=== PATIENT | female | born 1980 | race Caucasian/White ===

== ENCOUNTER 2021-08-28 06:39 | Inpatient (IN) ==
--- NOTE | 2021-08-28 06:41 | Emergency Department Note ---
Skin/Abscess/FB HPI General Chief complaint: Skin/Abscess/Rash Stated complaint: Left Arm Infection Time Seen by Provider: 08/28/21 06:41 Mode of arrival: ambulatory History of Present Illness HPI Narrative: Narrative: Related Data Previous Rx's Medication Instructions Recorded cephalexin 500 mg capsule 500 mg PO TID #21 caps 08/24/21 Allergies Allergy/AdvReac Type Severity Reaction Status Date / Time No Known Drug Allergies Allergy Verified 08/25/21 20:56 Review of Systems ROS ROS Narrative: Narrative: PFSH Narrative Patient History Narrative: Narrative: Medical/Surgical/Family History All Active Problems (Updated 08/25/21 @ 22:05 by Orestes Davis DO) Lymphangitis (Acute) Cellulitis of left thumb (Acute) Social History Smoking Status: Current every day smoker Exam Narrative Narrative: Narrative: MDM MDM Narrative Medical decision making narrative: Narrative: Discharge Plan Patient/Caregiver Discharge Instructions Follow up with: ARIANNE Valverde [Primary Care Provider] - Prescriptions: No Action cephalexin 500 mg capsule 500 mg PO TID Qty: 21 0RF
[2021-08-28] MEDS ORDERED: CLINDAMYCIN 900 MG in DEXTROSE 5% IN WATER 50 ML IV ONE (07:20)
[2021-08-28] MEDS ORDERED: VANCOMYCIN 2,000 MG in 0.9 % SODIUM CHLORIDE 500 ML IV ONE (07:20)
--- NOTE | 2021-08-28 07:31 | Emergency Department Note ---
HPI General Chief complaint: Skin/Abscess/Rash Stated complaint: Left Arm Infection Time Seen by Provider: 08/28/21 06:41 Source: patient Mode of arrival: ambulatory Limitations: no limitations History of Present Illness HPI Narrative: Narrative: Patient is a 40-year-old female with no known past medical history who presents to the emergency department due to concern for infection. Patient states that she was here approximately 2 days ago due to concern for infection, but decided to leave after recommendations to be admitted because of children who needed her care. She came back today after worsening of her symptoms despite Keflex therapy. She states that now she has more swelling of her thumb, swelling of her hand, and red streaks that are running up her arm. She endorses significant pain and tenderness of her thumb. She denies palliative factors, but states that trying to straighten her thumb has a significant pain. She denies any other symptoms or concerns at this time. Related Data Home Medications Medication Instructions Recorded Confirmed estradiol 0.5 mg PO QAM 08/28/21 08/28/21 hydroxyzine HCl 25 mg tablet 25 mg PO QHS 08/28/21 08/28/21 sertraline 50 mg PO BID 08/28/21 08/28/21 Previous Rx's Medication Instructions Recorded sulfamethoxazole 800 1 tab PO Q12H #12 tabs 08/30/21 mg-trimethoprim 160 mg tablet (Bactrim DS) Allergies Allergy/AdvReac Type Severity Reaction Status Date / Time ketorolac [From Toradol] Allergy Severe Anaphylaxis Verified 08/28/21 23:57 Review of Systems ROS ROS Narrative: Narrative: Constitutional: Denies fever or weakness Eyes: Denies eye pain or vision change ENT ED: Denies throat pain, hearing loss or rhinorrhea Cardiovascular: Denies chest pain, dyspnea on exertion, orthopnea or edema Respiratory: Denies shortness of breath or cough Gastrointestinal: Denies abdominal pain, nausea, vomiting, diarrhea, constipation, hematochezia or melena Musculoskeletal: Reports other (Redness, pain, tenderness, and swelling of left thumb, swelling of the hand); Denies back pain or myalgia Integumentary: Reports rash and other (Red streak running up left arm); Denies lesions Neurological: Denies headache, weakness, numbness, confusion, abnormal gait or dizziness Psychiatric: Denies anxiety, suicidal thoughts or homicidal thoughts Endocrine: Denies fatigue or polyuria Hematological/Lymphatic: Denies easy bleeding or easy bruising PFSH Narrative Patient History Narrative: Narrative: Medical/Surgical/Family History All Active Problems (Updated 09/06/21 @ 21:17 by Rivera Allen MD) Lymphangitis (Acute) Cellulitis of left thumb (Acute) Cellulitis (Acute) Social History Smoking Status: Current every day smoker Exam Narrative Narrative: Narrative: General Limitations: no limitations General appearance: Present alert and in no apparent distress; Absent anxious or appears intoxicated Head Head: Present atraumatic and normocephalic Eye Eye: Present PERRL and EOMI; Absent scleral icterus ENT ENT: Present mucous membranes moist; Absent nasal congestion Neck Neck: Present full ROM; Absent tenderness Chest Chest: Present normal inspection and symmetric chest wall rise Respiratory Respiratory: Present normal lung sounds bilaterally; Absent respiratory distress or accessory muscle use Cardiovascular Cardiovascular: Present regular rate, normal rhythm and normal heart sounds Adbominal Abdominal: Present soft and normal bowel sounds; Absent distention or tenderness Extremities Extremities: Present normal inspection, full ROM, tenderness (Tenderness of thumb including of area over flexor tendon, pain with passive extension) and other (Fusiform swelling of the left thumb, thumb held in slight flexion) Back Back: Present normal inspection and full ROM; Absent tenderness Neurological Neurological: Present alert, oriented X3, CN II-XII intact, normal gait and reflexes normal; Absent motor sensory deficit Psychiatric Psychiatric: Present normal affect and normal mood Skin Skin: Present warm (WNL), dry and normal color Course Vital Signs Vital signs: Vital Signs Temperature 98.1 F 08/28/21 06:40 Pulse Rate 82 08/28/21 06:40 Respiratory Rate 18 08/28/21 06:40 Blood Pressure 142/84 08/28/21 06:40 Pulse Oximetry (%) 98 08/28/21 06:40 Oxygen Delivery Method 08/28/21 06:40 Temperature 97.8 F 08/30/21 09:48 Pulse Rate 59 L 08/30/21 09:48 Respiratory Rate 20 08/30/21 09:48 Blood Pressure 135/85 08/30/21 09:48 Pulse Oximetry (%) 96 08/30/21 09:48 Oxygen Delivery Method 08/30/21 09:48 [facility] Narrative Medical decision making narrative: Narrative: Patient is a 40-year-old female who presents to the emergency department due to worsening concerns infection. Patient's symptoms are concerning for flexor tenosynovitis given patient meeting for Knievel signs with finger held in slight flexion, fusiform swelling of thumb, tenderness along the flexor tendon sheath, and pain with passive extension. I have spoken to Dr. Sousa who has agreed to see and evaluate patient. There is also concern for cellulitis and lymphangitis given the erythema and erythematous streak on her left arm with lymph node swelling. An IV has been placed and antibiotics started. Dr. Sousa's PA has seen patient and spoke to hospitalist for admission. Lab Data Result diagrams: 08/28/21 07:25 08/28/21 07:25 Labs: Lab Results 08/28/21 08/28/21 08/28/21 Range/Units 07:25 07:25 07:25 WBC 10.0 (4.5-11.0) K/mcL RBC 4.17 (3.59-5.38) M/mcL Hgb 13.4 (11.2-15.7) g/dL Hct 38.4 (34.1-44.9) % POC Hct (36-48) MCV 92.1 (80.0-100.0) fL MCH 32.1 (26.0-34.0) pg MCHC 34.9 (31.0-36.0) g/dL RDW 12.7 (11.5-14.5) % Plt Count 258 (140-440) K/mcL MPV 9.2 (7.4-10.4) fL Immature Gran % (Auto) 0.3 (0.0-0.5) % Neut % (Auto) 63.9 (38.0-78.0) % Lymph % (Auto) 23.2 (15.5-49.0) % [place] % (Auto) 7.3 (1.0-12.0) % Eos % (Auto) 4.9 (0.0-7.0) % Baso % (Auto) 0.4 (0.0-2.0) % Lymph # (Auto) 2.33 (1.50-4.80) K/mcL [place] # (Auto) 0.73 (0.10-0.90) K/mcL Eos # (Auto) 0.49 (0.00-0.70) K/mcL Baso # (Auto) 0.04 (0.00-0.30) K/mcL Immature Gran # 0.03 (0.00-0.05) K/mcl Absolute Neutrophils 6.45 (1.80-8.00) K/mcL PT 12.5 (11.9-14.5) sec INR 0.9 (0.9-1.1) APTT 35.3 (20.0-37.0) sec POC Sodium (133-145) Sodium 136 (133-145) mmol/L POC Potassium (3.3-5.1) Potassium 4.0 (3.3-5.1) mmol/L POC Chloride (96-108) Chloride 104 (96-108) mmol/L Carbon Dioxide 23 (22-30) mmol/L POC Total CO2 (22-30) Anion Gap 9.0 (8.0-16.0) POC BUN (6-20) BUN 12 (6-20) mg/dL Creatinine 0.5 L (0.6-1.1) mg/dL POC Creatinine (0.6-1.2) GFR Calculation 121 Glucose 106 H (70-105) mg/dL POC Glucose (70-105) POC WB Ioniz Calcium (1.16-1.32) Ionized Calcium Kat 1.03 L (1.16-1.32) mmol/L // Range/Units 07:34 WBC (4.5-11.0) K/mcL RBC (3.59-5.38) M/mcL Hgb (11.2-15.7) g/dL Hct (34.1-44.9) % POC Hct 38.0 (36-48) MCV (80.0-100.0) fL MCH (26.0-34.0) pg MCHC (31.0-36.0) g/dL RDW (11.5-14.5) % Plt Count (140-440) K/mcL MPV (7.4-10.4) fL Immature Gran % (Auto) (0.0-0.5) % Neut % (Auto) (38.0-78.0) % Lymph % (Auto) (15.5-49.0) % [place] % (Auto) (1.0-12.0) % Eos % (Auto) (0.0-7.0) % Baso % (Auto) (0.0-2.0) % Lymph # (Auto) (1.50-4.80) K/mcL [place] # (Auto) (0.10-0.90) K/mcL Eos # (Auto) (0.00-0.70) K/mcL Baso # (Auto) (0.00-0.30) K/mcL Immature Gran # (0.00-0.05) K/mcl Absolute Neutrophils (1.80-8.00) K/mcL PT (11.9-14.5) sec INR (0.9-1.1) APTT (20.0-37.0) sec POC Sodium 140 (133-145) Sodium (133-145) mmol/L POC Potassium 3.8 (3.3-5.1) Potassium (3.3-5.1) mmol/L POC Chloride 109 H (96-108) Chloride (96-108) mmol/L Carbon Dioxide (22-30) mmol/L POC Total CO2 23.0 (22-30) Anion Gap (8.0-16.0) POC BUN 12 (6-20) BUN (6-20) mg/dL Creatinine (0.6-1.1) mg/dL POC Creatinine 0.4 L (0.6-1.2) GFR Calculation Glucose (70-105) mg/dL POC Glucose 107 H (70-105) POC WB Ioniz Calcium 1.10 L (1.16-1.32) Ionized Calcium Kat (1.16-1.32) mmol/L Discharge Plan Patient/Caregiver Discharge Instructions Pt seen by [employer]/PA only: No Clinical Impression: Lymphangitis, Cellulitis of left thumb, Cellulitis Activity: increase activity as tolerated Patient Disposition: Xfer As Inpt ([facility]) Condition: Fair Discharge Date/Time: 08/28/21 12:55 Discharge Comment: Pt discharge to 131 @ 1255
[2021-08-28 07:39] LABS: POC Calcium, Ionized 1.1 (1.16-1.32); POC Creatinine 0.4 (0.6-1.2); POC Potassium 3.8 (3.3-5.1)
--- NOTE | 2021-08-28 07:45 | XRay Report ---
CLINICAL INFORMATION: Left thumb pain COMPARISON: None FINDINGS: No fracture identified. Ulnar minus anomaly noted. Joint spaces are normal in width and alignment. Soft tissues are unremarkable. IMPRESSION: No fracture. Ulnar minus anomaly Interpreted and Authenticated by: Dmitriy Patten 08/28/21
[2021-08-28 08:05] LABS: Basophils # (Auto) 0.04 K/mcL (0.00-0.30); Basophils % (Auto) 0.4 % (0.0-2.0); Eosinophils # (Auto) 0.49 K/mcL (0.00-0.70); Eosinophils % (Auto) 4.9 % (0.0-7.0); Hematocrit 38.4 % (34.1-44.9); Hemoglobin 13.4 g/dL (11.2-15.7); Lymphocytes # (Auto) 2.33 K/mcL (1.50-4.80); Lymphocytes % (Auto) 23.2 % (15.5-49.0); Mean Cell Volume 92.1 fL (80.0-100.0); Mean Corpuscular HGB Conc 34.9 g/dL (31.0-36.0); Mean Platelet Volume 9.2 fL (7.4-10.4); Monocytes # (Auto) 0.73 K/mcL (0.10-0.90); Monocytes % (Auto) 7.3 % (1.0-12.0); Neutrophils % (Auto) 63.9 % (38.0-78.0); Platelet Count 258 K/mcL (140-440); RBC 4.17 M/mcL (3.59-5.38); Red Cell Distribution Width 12.7 % (11.5-14.5)
[2021-08-28 08:15] LABS: INR 0.9 (0.9-1.1); Partial Thromboplastin Time 35.3 sec (20.0-37.0); Prothrombin Time 12.5 sec (11.9-14.5)
[2021-08-28] MEDS ORDERED: HYDROmorphone 0.5 MG/0.5 ML SYRINGE IV ONE ×3 (08:19→11:32)
[2021-08-28 08:33] LABS: Blood Urea Nitrogen 12 mg/dL (6-20); Carbon Dioxide 23 mmol/L (22-30); Chloride 104 mmol/L (96-108); Glomerular Filtration Rate 121; Glucose 106 mg/dL (70-105)
--- NOTE | 2021-08-28 11:52 | Orthopedic Consult Note ---
HPI Data of Consult Consult date: 08/28/21 Primary Care Provider: [facility] Consult Narrative History of present illness: Patient is a 40-year-old female with no known past medical history who presents to the emergency department due to concern for infection after a spider reportedly bit the dorsum of her left thumb. Patient states that she was here approximately 2 days ago due to concern for infection, but decided to leave after recommendations to be admitted because of children who needed her care. She came back today after worsening of her symptoms despite Keflex therapy. She states that now she has more swelling of her thumb, swelling of her hand, and red streaks that are running up her arm. She endorses significant pain and tenderness of her thumb. She denies palliative factors, but states that trying to straighten her thumb has a significant pain. She denies any other symptoms or concerns at this time. cc:: CC: Review of Systems All systems: reviewed and no additional remarkable complaints except as stated PFSH PFSH All Active Problems (Updated 08/25/21 @ 22:05 by Orestes Davis DO) Lymphangitis (Acute) Cellulitis of left thumb (Acute) MEDS/ALLERGIES Home Medications and Allergies Home Medications Medication Instructions Recorded Confirmed Type cephalexin 500 mg capsule 500 mg PO TID #21 caps 08/24/21 Rx Allergies Allergy/AdvReac Type Severity Reaction Status Date / Time No Known Drug Allergies Allergy Verified 08/25/21 20:56 Physical Examination Narrative Narrative: Narrative: A/P Narrative A/P Narrative: Patient seated in bed in no acute distress, breathing is unlabored and no complaints other than left hand and arm pain. there is a large indurated, necrotic appearing subcutaneous abscess at the dorsum of the left thumb and radiating erythema with extends along the anterolateral aspect to the anterior surface of the left elbow. There is diffuse tenderness to palpation of these areas and with flexion and extension ROM of the thumb. There is tenderness with extension of the thumb, however erythema tracks down the extensor surface. I feel flexor involvement is less likely. Assessment: 40 YO female w/ necrosis and radiating infection which has failed outpatient PO abx therapy initiated AMA. Plan of Treatment: After informed consent, the area was cleansed with Betadine and thereafter utilizing sterile technique a 18 gauge angiocath was advanced to the lateral aspect of the abscess obtaining purulent material. This was sampled in sterile fashion using a culture swab which was sent to lab for analysis. I thereafter attempted to place a second angiocath for bedside washout, however this was disc ontinued due to patient discomfort. I was able to express most of the contents of the abscess. Plan is for hospitalist admission for empiric antibiotic treatment, further guided by culture results. We will hold off on open surgical I+D for now awaiting treatment results. This case, images and course of treatment was also discussed/ reviewed with orthopedic surgeons Yamileth Roe and with attending ER physician. Time Spent With Patient Time: Total time spent is greater than 50% in coordination of care (as documented) at patient's floor/unit and/or counseling patient:
--- NOTE | 2021-08-28 12:25 | Internal Med History&Physical ---
HPI History of Present Illness Patient information: Note initiated : 08/28/21 at 12:21 pm Service Date, if different from initiated Date: [] Patient: Huong Begum a 40 y/o F admitted on for Left Arm Infection. Chief Complaint: [] History of present illness: Ms. Begum is a 40 year old F Presents to the ED with left hand pain and swelling tenderness redness. Patient woke up Monday morning with what appeared to be a small bite on her thumb it was mildly red. She did find a spider in her bed. This spot worsen became more swollen red and tender and she went to the [facility] care on Monday morning and got Keflex and has been taking that but it is continued to worsen. And in thumb become more swelling she had some red streaks up her arm. Fevers and chills nausea but no vomiting. In the ED she was evaluated found to have a small abscess on her thumb and concern for tenosynovitis. Orthopedic surgery was consulted. Physician logistics assistant withdrew some small amount of pus from the abscess area. Because of the severe worsening even on oral antibiotics patient is admitted. Review of Systems: Pertinent positives as above. Denies headache/vomiting/chest or abdominal pain/cough/dyspnea/diarrhea. Remaining 10 point review of system reviewed negative. PFSH PFSH All Active Problems (Updated 08/25/21 @ 22:05 by Orestes Davis DO) Lymphangitis (Acute) Cellulitis of left thumb (Acute) MEDS/ALLERGIES Home Medications and Allergies Home Medications Medication Instructions Recorded Confirmed Type cephalexin 500 mg capsule 500 mg PO TID #21 caps 08/24/21 Rx Allergies Allergy/AdvReac Type Severity Reaction Status Date / Time No Known Drug Allergies Allergy Verified 08/25/21 20:56 EXAM Constitutional Vitals: Temp Pulse Resp BP Pulse Ox O2 Del Method 98.1 F 73 18 139/78 100 08/28/21 06:40 08/28/21 10:46 08/28/21 06:40 08/28/21 10:46 08/28/21 10:46 08/28/21 06:40 Exam: General: Alert, Awake, No acute Distress Eyes/N/T: EOMI, PERRL, MM Head/Neck: neck supple, normocephalic atraumatic CV: RRR, No murmurs, normal s1/s2 Pulm: Clear b/l, no wheezing/rhonchi/rales Abd: soft, nontender, +BS x4 Ext: no clubbing/cyanosis/edema to LE. Left hand with erythema/edema. Large bulla with pustulant's over the thumb Neuro: Alert, no focal deficits, moves all extremities, CN 2-12 grossly intact, Skin: warm/dry DATA Data Completed and Pending Labs: Labs from last 24 hours 08/28/21 08/28/21 08/28/21 07:34 07:25 07:25 WBC RBC Hgb Hct POC Hct 38.0 MCV MCH MCHC RDW Plt Count MPV Immature Gran % (Auto) Neut % (Auto) Lymph % (Auto) [place] % (Auto) Eos % (Auto) Baso % (Auto) Lymph # (Auto) [place] # (Auto) Eos # (Auto) Baso # (Auto) Immature Gran # Absolute Neutrophils PT 12.5 INR 0.9 APTT 35.3 POC Sodium 140 Sodium 136 POC Potassium 3.8 Potassium 4.0 POC Chloride 109 H Chloride 104 Carbon Dioxide 23 POC Total CO2 23.0 Anion Gap 9.0 POC BUN 12 BUN 12 Creatinine 0.5 L POC Creatinine 0.4 L GFR Calculation 121 Glucose 106 H POC Glucose 107 H POC WB Ioniz Calcium 1.10 L Ionized Calcium Kat 1.03 L 08/28/21 07:25 WBC 10.0 RBC 4.17 Hgb 13.4 Hct 38.4 POC Hct MCV 92.1 MCH 32.1 MCHC 34.9 RDW 12.7 Plt Count 258 MPV 9.2 Immature Gran % (Auto) 0.3 Neut % (Auto) 63.9 Lymph % (Auto) 23.2 [place] % (Auto) 7.3 Eos % (Auto) 4.9 Baso % (Auto) 0.4 Lymph # (Auto) 2.33 [place] # (Auto) 0.73 Eos # (Auto) 0.49 Baso # (Auto) 0.04 Immature Gran # 0.03 Absolute Neutrophils 6.45 PT INR APTT POC Sodium Sodium POC Potassium Potassium POC Chloride Chloride Carbon Dioxide POC Total CO2 Anion Gap POC BUN BUN Creatinine POC Creatinine GFR Calculation Glucose POC Glucose POC WB Ioniz Calcium Ionized Calcium Kat A/P Narrative A/P Narrative: A: *Left hand cellulitis/abscess/tenosynovitis: s/p I&D in ED. failed outpatient antibiotics *Depression: *Tobacco abuse: P: -IV antibiotics, pending cultures -Orthopedics surgery following -mrsa screen -Smoking cessation counseling >3 minutes -ppx: SCD/ambulation Time Spent With Patient Time: Total time spent is greater than 50% in coordination of care (as documented) at patient's floor/unit and/or counseling patient:
[2021-08-28] MEDS ORDERED: POTASSIUM CHLORIDE 20 MEQ TABLET PO PRN ×2 (13:14)
[2021-08-28] MEDS ORDERED: POTASSIUM CHLORIDE 40 MEQ in DEXTROSE 5% IN WATER 500 ML IV PRN (13:14)
[2021-08-28] MEDS ORDERED: MAGNESIUM SULFATE 2 GM/50 ML BAG IV PRN (13:14)
[2021-08-28] MEDS ORDERED: POLYETHYLENE GLYCOL 3350 17 GM PACKET PO PRN (13:14)
[2021-08-28] MEDS ORDERED: IPRATROPIUM/ALBUTEROL 3 ML AMPUL.NEB NEB PRN (13:14)
[2021-08-28] MEDS ORDERED: SENNOSIDES 1 TABLET PO PRN (13:14)
[2021-08-28] MEDS ORDERED: ONDANSETRON 4 MG/2 ML VIAL IV PRN (13:14)
[2021-08-28] MEDS ORDERED: VANCOMYCIN PER PHARMACY IV SCH (13:14)
[2021-08-28] MEDS: HYDROcodone/APAP 5/325MG TABLET PO PRN ×3 (14:55→23:39)
[2021-08-28] MEDS: cefTRIAXone 2 GM in DEXTROSE 5% IN WATER 50 ML IV SCH (15:31)
[2021-08-28] MEDS: 0.9 % SODIUM CHLORIDE 10 ML SYRINGE IV SCH ×2 (15:31→22:11)
[2021-08-28] MEDS: LORazepam 2 MG/ML VIAL IV PRN ×2 (15:51→23:39)
[2021-08-28] MEDS: morphine 4 MG/ML VIAL IV PRN ×2 (19:14→21:49)
[2021-08-28] MEDS ORDERED: MELATONIN 3 MG TABLET PO PRN (21:26)
[2021-08-28] MEDS: DOCUSATE SODIUM 100 MG CAPSULE PO SCH (21:51)
[2021-08-28] MEDS: SERTRALINE 50 MG TABLET PO SCH (21:51)
[2021-08-28] MEDS: hydrOXYzine 25 MG TABLET PO SCH (21:51)
[2021-08-28] MEDS: VANCOMYCIN 1,500 MG in 0.9 % SODIUM CHLORIDE 500 ML IV SCH (21:52)
[2021-08-28] MEDS: TEMAZEPAM 15 MG CAPSULE PO PRN (22:00)
[2021-08-28] MEDS ORDERED: TEMAZEPAM 15 MG CAPSULE PO ONE (22:09)
[2021-08-28] MEDS: ACETAMINOPHEN 325 MG TABLET PO PRN (23:48)
[2021-08-29] MEDS: morphine 4 MG/ML VIAL IV PRN ×4 (01:00→21:54)
[2021-08-29] MEDS: HYDROcodone/APAP 5/325MG TABLET PO PRN ×4 (03:23→20:00)
--- NOTE | 2021-08-29 08:07 | Internal Med Progress Note ---
SUBJECTIVE Subjective Patient information: Note initiated : 08/29/21 at 8:05 am Service Date, if different from initiated Date: [] Patient: Huong Begum a 40 y/o F admitted on 08/28/21 for Left Arm Infection. Chief Complaint: [] Interval history: History of present illness: Ms. Begum is a 40 year old F Presents to the ED with left hand pain and swelling tenderness redness. Patient woke up Monday morning with what appeared to be a small bite on her thumb it was mildly red. She did find a spider in her bed. This spot worsen became more swollen red and tender and she went to the [facility] on Monday and got Keflex and has been taking that but it is continued to worsen. And in thumb become more swelling she had some red streaks up her arm. Fevers and chills nausea but no vomiting. In the ED she was evaluated found to have a small abscess on her thumb and concern for tenosynovitis. Orthopedic surgery was consulted. Physician registered sales assistant withdrew some small amount of pus from the abscess area. Because of the severe worsening even on oral antibiotics patient is admitted. 08/29 Patient states mediocre sleep last night. She feels her hand arm is slowly improving, still painful still swollen and red. Says little more pus was able to drain out of the lesion. Review of Systems: denies headache/fever/chills/nausea/vomiting/chest or abdominal pain/cough/dyspnea/diarrhea. Otherwise see above. Constitutional Vitals: Vital Signs Temp Pulse Resp BP Pulse Ox O2 Del Method 98.1 F 61 15 138/87 97 08/29/21 07:46 08/29/21 07:46 08/29/21 07:46 08/29/21 07:46 08/29/21 07:46 08/29/21 07:46 Period Temp Pulse Resp BP Sys/Munoz Pulse Ox O2 Del Method O2 Flow Rate Last 24 Hr 97.7 F-99.3 F 61-76 15-18 107-140/67-96 96-100 Room Air-Room Air Intake and Output 08/28/21 08/29/21 08/29/21 21:59 05:59 13:59 Intake Total 290 1100 Balance 290 1100 Weight 87.362 kg Intake & Output: Intake & Output 08/28/21 08/29/21 08/29/21 21:59 05:59 13:59 Intake Total 290 1100 Balance 290 1100 Weight 87.362 kg Intake: IV 50 500 Vancomycin 1,500 mg In Sodium 500 Chloride 0.9% 500 ml @ 333.3 mls/hr IV Q12H [facility] Rx#: [id number] Rocephin 2 gm In Dextrose 5% in 50 Water 50 ml @ 100 mls/hr IV Q24H [facility] Rx#:[id number] Oral 240 600 Other: # Voids 3 # Bowel Movements 0 Exam: General: Alert, Awake, No acute Distress Eyes/N/T: EOMI, Head/Neck: neck supple, CV: RRR, No murmurs, Pulm: Clear b/l, no wheezing/rhonchi/rales Abd: soft, nontender, +BS x4 Ext: no clubbing/cyanosis/edema to LE. Left hand with erythema/edema that was streaking of the arm is now improved. Large bulla with pustulant's over the thumb. Erythema/edema has improved and is more isolated to the lesion over the thumb now. Patient able to close her fist 60%. Neuro: Alert, no focal deficits, moves all extremities Skin: warm/dry OBJ DATA Labs CBC & Chem 7: 08/28/21 07:25 08/28/21 07:25 Labs: Abnormal Lab Results 08/28/21 08/28/21 07:34 07:25 POC Chloride 109 H Creatinine 0.5 L POC Creatinine 0.4 L Glucose 106 H POC Glucose 107 H POC WB Ioniz Calcium 1.10 L Ionized Calcium Kat 1.03 L Meds: Medications Acetaminophen (Acetaminophen 325 Mg Tablet) 650 mg PO Q6HP PRN; Protocol PRN Reason: Per Pain Protocol/Fever > 101 Last Admin: 08/28/21 23:48 Dose: 650 mg Hydrocodone Bitart/Acetaminophen (Hydrocodone/Apap 5/325mg Tablet) 1 tab PO Q4HP PRN PRN Reason: PAIN LEVEL 3-6 Last Admin: 08/29/21 03:23 Dose: 1 tab Albuterol/Ipratropium (Ipratropium/Albuterol 3 Ml Ampul.Neb) 3 ml NEB Q4HP PRN PRN Reason: Shortness Of Breath Docusate Sodium (Docusate Sodium 100 Mg Capsule) 100 mg PO BID [facility] Last Admin: 08/28/21 21:51 Dose: 100 mg Hydroxyzine HCl (Hydroxyzine 25 Mg Tablet) 25 mg PO QHS [facility] Last Admin: 08/28/21 21:51 Dose: 25 mg Potassium Chloride 40 meq/ (Dextrose) 520 mls @ 130 mls/hr IV UD PRN PRN Reason: Potassium < 3 Magnesium Sulfate (Magnesium Sulfate) 2 gm in 50 mls @ 50 mls/hr IV UD PRN PRN Reason: Magnesium </= 1.6 Ceftriaxone Sodium 2 gm/ (Dextrose) 50 mls @ 100 mls/hr IV Q24H [facility]; Protocol Last Infusion: 08/28/21 16:01 Dose: Infused Vancomycin HCl 1,500 mg/ (Sodium Chloride) 500 mls @ 333.3 mls/hr IV Q12H [facility] Last Infusion: 08/28/21 23:23 Dose: Infused Lorazepam (Lorazepam 2 Mg/Ml Vial) 0.5 mg IV Q4-6HP PRN PRN Reason: ANXIETY/SEDATION Last Admin: 08/28/21 23:39 Dose: 0.5 mg Melatonin (Melatonin 3 Mg Tablet) 6 mg PO HSP PRN PRN Reason: Sleep Morphine Sulfate (Morphine 4 Mg/Ml Vial) 0 mg IV Q3HP PRN PRN Reason: Pain Last Admin: 08/29/21 01:00 Dose: 3 mg Ondansetron HCl (Ondansetron 4 Mg/2 Ml Vial) 4 mg IV Q4HP PRN PRN Reason: Nausea And Vomiting Polyethylene Glycol (Polyethylene Glycol 3350 17 Gm Packet) 17 gm PO DAILYP PRN PRN Reason: Constipation Potassium Chloride (Potassium Chloride 20 Meq Tablet) 40 meq PO UD PRN PRN Reason: Potssium is 3-3.5 Potassium Chloride (Potassium Chloride 20 Meq Tablet) 40 meq PO UD PRN PRN Reason: Potassium < 3 Senna (Sennosides 1 Tablet) 2 tab PO DAILYP PRN PRN Reason: Constipation Sertraline HCl (Sertraline 50 Mg Tablet) 50 mg PO BID [facility] Last Admin: 08/28/21 21:51 Dose: 50 mg Sodium Chloride (0.9 % Sodium Chloride 10 Ml Syringe) 10 ml IV Q8 [facility] Last Admin: 08/28/21 22:11 Dose: 10 ml Temazepam (Temazepam 15 Mg Capsule) 15 mg PO HSP PRN PRN Reason: Insomnia Last Admin: 08/28/21 22:00 Dose: 15 mg Vancomycin HCl (Vancomycin Per Pharmacy) 1 order IV UD [facility]; Protocol A/P Narrative A/P Narrative: A: *Left hand cellulitis/abscess/tenosynovitis: s/p I&D in ED. failed outpatient antibiotics - *Depression: *Tobacco abuse: P: -IV antibiotics, pending wound cultures -Orthopedics surgery following -mrsa screen neg -Smoking cessation counseling -ppx: SCD/ambulation Time Spent With Patient Time: Total time spent is greater than 50% in coordination of care (as documented) at patient's floor/unit and/or counseling patient: QUALITY VTE Deep Vein Thrombosis/Pulmonary Embolism Present on Admission: No
[2021-08-29] MEDS: cefTRIAXone 2 GM in DEXTROSE 5% IN WATER 50 ML IV SCH (08:18)
[2021-08-29] MEDS: 0.9 % SODIUM CHLORIDE 10 ML SYRINGE IV SCH ×3 (08:19→21:55)
[2021-08-29] MEDS ORDERED: ESTRADIOL 0.5 MG TABLET PO SCH (09:00)
[2021-08-29] MEDS: SERTRALINE 50 MG TABLET PO SCH ×2 (09:21→19:59)
[2021-08-29] MEDS: DOCUSATE SODIUM 100 MG CAPSULE PO SCH ×2 (09:21→20:02)
[2021-08-29] MEDS: VANCOMYCIN 1,500 MG in 0.9 % SODIUM CHLORIDE 500 ML IV SCH ×2 (09:22→21:46)
--- NOTE | 2021-08-29 09:45 | Orthopedic Progress Note ---
SUBJECTIVE Subjective Patient information: Note initiated : 08/29/21 at 9:26 am Service Date, if different from initiated Date: [] Patient: Huong Begum 40 y/o F admitted on 08/28/21 for Left Arm Infection. Chief Complaint: [left hand, forearm pain s/p spider bite ] Interval history: 40 YO female who sustained a suspected spider bite to dorsum of left thumb which was evaluated and treated w/ PO keflex. Admission for IV ABX was advised but due to social situation patient refused. Patient returned to [facility] ED with large abscess at dorsum L thumb and erythema extending to anterior forearm. Admitted for ABX treatment, pending washout and I+D of abscess. Surgical washout not required at that time. Plan was for IV ABX treatment and bedside washout debridement of abscess. Pertinent ROS: 10 points reviewed and are negative except where mentioned. Constitutional Vitals: Vital Signs Temp Pulse Resp BP Pulse Ox O2 Del Method 98.1 F 61 15 138/87 97 08/29/21 07:46 08/29/21 07:46 08/29/21 07:46 08/29/21 07:46 08/29/21 07:46 08/29/21 07:46 Period Temp Pulse Resp BP Sys/Munoz Pulse Ox O2 Del Method O2 Flow Rate Last 24 Hr 97.7 F-99.3 F 61-76 15-18 107-140/73-96 96-100 Room Air-Room Air Intake and Output 08/28/21 08/29/21 08/29/21 21:59 05:59 13:59 Intake Total 290 1100 Balance 290 1100 Weight 192 lb 9.6 oz Intake & Output: Intake & Output 08/28/21 08/29/21 08/29/21 21:59 05:59 13:59 Intake Total 290 1100 Balance 290 1100 Weight 192 lb 9.6 oz Intake: IV 50 500 Vancomycin 1,500 mg In Sodium 500 Chloride 0.9% 500 ml @ 333.3 mls/hr IV Q12H [facility] Rx#: [id number] Rocephin 2 gm In Dextrose 5% in 50 Water 50 ml @ 100 mls/hr IV Q24H [facility] Rx#:[id number] Oral 240 600 Other: # Voids 3 # Bowel Movements 0 OBJ DATA Labs CBC & Chem 7: 08/28/21 07:25 08/28/21 07:25 Labs: Abnormal Lab Results 08/28/21 08/28/21 07:34 07:25 POC Chloride 109 H Creatinine 0.5 L POC Creatinine 0.4 L Glucose 106 H POC Glucose 107 H POC WB Ioniz Calcium 1.10 L Ionized Calcium Kat 1.03 L Meds: Medications Acetaminophen (Acetaminophen 325 Mg Tablet) 650 mg PO Q6HP PRN; Protocol PRN Reason: Per Pain Protocol/Fever > 101 Last Admin: 08/28/21 23:48 Dose: 650 mg Hydrocodone Bitart/Acetaminophen (Hydrocodone/Apap 5/325mg Tablet) 1 tab PO Q4HP PRN PRN Reason: PAIN LEVEL 3-6 Last Admin: 08/29/21 03:23 Dose: 1 tab Albuterol/Ipratropium (Ipratropium/Albuterol 3 Ml Ampul.Neb) 3 ml NEB Q4HP PRN PRN Reason: Shortness Of Breath Docusate Sodium (Docusate Sodium 100 Mg Capsule) 100 mg PO BID RADHA Last Admin: 08/29/21 09:21 Dose: Not Given Hydroxyzine HCl (Hydroxyzine 25 Mg Tablet) 25 mg PO QHS [facility] Last Admin: 08/28/21 21:51 Dose: 25 mg Potassium Chloride 40 meq/ (Dextrose) 520 mls @ 130 mls/hr IV UD PRN PRN Reason: Potassium < 3 Magnesium Sulfate (Magnesium Sulfate) 2 gm in 50 mls @ 50 mls/hr IV UD PRN PRN Reason: Magnesium </= 1.6 Ceftriaxone Sodium 2 gm/ (Dextrose) 50 mls @ 100 mls/hr IV Q24H [facility]; Protocol Last Admin: 08/29/21 08:18 Dose: 100 mls/hr Vancomycin HCl 1,500 mg/ (Sodium Chloride) 500 mls @ 333.3 mls/hr IV Q12H RADHA Last Admin: 08/29/21 09:22 Dose: 333.3 mls/hr Lorazepam (Lorazepam 2 Mg/Ml Vial) 0.5 mg IV Q4-6HP PRN PRN Reason: ANXIETY/SEDATION Last Admin: 08/28/21 23:39 Dose: 0.5 mg Melatonin (Melatonin 3 Mg Tablet) 6 mg PO HSP PRN PRN Reason: Sleep Morphine Sulfate (Morphine 4 Mg/Ml Vial) 0 mg IV Q3HP PRN PRN Reason: Pain Last Admin: 08/29/21 09:22 Dose: 3 mg Ondansetron HCl (Ondansetron 4 Mg/2 Ml Vial) 4 mg IV Q4HP PRN PRN Reason: Nausea And Vomiting Last Admin: 08/29/21 09:23 Dose: 4 mg Polyethylene Glycol (Polyethylene Glycol 3350 17 Gm Packet) 17 gm PO DAILYP PRN PRN Reason: Constipation Potassium Chloride (Potassium Chloride 20 Meq Tablet) 40 meq PO UD PRN PRN Reason: Potssium is 3-3.5 Potassium Chloride (Potassium Chloride 20 Meq Tablet) 40 meq PO UD PRN PRN Reason: Potassium < 3 Senna (Sennosides 1 Tablet) 2 tab PO DAILYP PRN PRN Reason: Constipation Sertraline HCl (Sertraline 50 Mg Tablet) 50 mg PO BID RADHA Last Admin: 08/29/21 09:21 Dose: 50 mg Sodium Chloride (0.9 % Sodium Chloride 10 Ml Syringe) 10 ml IV Q8 RADHA Last Admin: 08/29/21 08:19 Dose: 10 ml Temazepam (Temazepam 15 Mg Capsule) 15 mg PO HSP PRN PRN Reason: Insomnia Last Admin: 08/28/21 22:00 Dose: 15 mg Vancomycin HCl (Vancomycin Per Pharmacy) 1 order IV UD RDA[facility]; Protocol A/P Narrative A/P Narrative: Patient seen and examined this am. Seated in bed in no acute distress. endorses arm is feeling better. Denies fever, chills, N+V, SOB Initial micro of abcess culture reveals many polys but no organisms, nasal MRSA is negative. Left thumb dorsal abscess is draining from puncture site, Erythema appears improved. I spoke to the patient about bedside I+D detailing the procedure in detail and necessity. At this time patient declines, stating anxiety and apprehension over pain and possible re-infection. She believes that the current drainage is sufficient and refuses any intervention. I counselled patient that washout and debridement would likely accelerate healing as we would remove reservoir of infection, she continues to decline. We will continue with plan of IV ABX and watchful waiting at this time. non-weightbearing with LEFT upper extremity pain control continue IV abx Time Spent With Patient Time: Total time spent is greater than 50% in coordination of care (as documented) at patient's floor/unit and/or counseling patient:
[2021-08-29] MEDS: LORazepam 2 MG/ML VIAL IV PRN ×3 (11:37→21:46)
[2021-08-29] MEDS: hydrOXYzine 25 MG TABLET PO SCH (19:59)
[2021-08-29] MEDS: TEMAZEPAM 15 MG CAPSULE PO PRN (22:53)
[2021-08-30] MEDS: morphine 4 MG/ML VIAL IV PRN (03:37)
[2021-08-30] MEDS: 0.9 % SODIUM CHLORIDE 10 ML SYRINGE IV SCH (05:50)
[2021-08-30] MEDS: ACETAMINOPHEN 325 MG TABLET PO PRN (05:53)
[2021-08-30] MEDS: cefTRIAXone 2 GM in DEXTROSE 5% IN WATER 50 ML IV SCH (07:15)
--- NOTE | 2021-08-30 07:39 | Internal Med Progress Note ---
SUBJECTIVE Subjective Patient information: Note initiated : 08/30/21 at 7:37 am Service Date, if different from initiated Date: [] Patient: Huong Begum 40 y/o F admitted on 08/28/21 for Left Arm Infection. Chief Complaint: [] Interval history: History of present illness: Ms. Begum is a 40 year old F Presents to the ED with left hand pain and swelling tenderness redness. Patient woke up Monday morning with what appeared to be a small bite on her thumb it was mildly red. She did find a spider in her bed. This spot worsen became more swollen red and tender and she went to the [facility] on Monday and got Keflex and has been taking that but it is continued to worsen. And in thumb become more swelling she had some red streaks up her arm. Fevers and chills nausea but no vomiting. In the ED she was evaluated found to have a small abscess on her thumb and concern for tenosynovitis. Orthopedic surgery was consulted. Physician editorial assistant withdrew some small amount of pus from the abscess area. Because of the severe worsening even on oral antibiotics patient is admitted. 08/29 Patient states mediocre sleep last night. She feels her hand arm is slowly improving, still painful still swollen and red. Says little more pus was able to drain out of the lesion. Review of Systems: denies headache/fever/chills/nausea/vomiting/chest or abdominal pain/cough/dyspnea/diarrhea. Otherwise see above. Constitutional Vitals: Vital Signs Temp Pulse Resp BP Pulse Ox O2 Del Method 99.0 F 62 18 135/80 97 08/30/21 04:00 08/30/21 04:00 08/30/21 04:00 08/30/21 04:00 08/30/21 04:00 08/30/21 04:00 Period Temp Pulse Resp BP Sys/Munoz Pulse Ox O2 Del Method O2 Flow Rate Last 24 Hr 97.2 F-99.0 F 61-86 15-22 120-144/73-87 96-97 Room Air-Room Air Intake and Output 08/29/21 08/30/21 08/30/21 21:59 05:59 13:59 Intake Total 980 Balance 980 Intake & Output: Intake & Output 07/24/22 07/25/22 07/25/22 21:59 05:59 13:59 Intake Total 980 Balance 980 Intake: IV 500 Vancomycin 1,500 mg In Sodium 500 Chloride 0.9% 500 ml @ 333.3 mls/hr IV Q12H [facility] Rx#: [id number] Oral 480 Other: # Voids 3 Exam: General: Alert, Awake, No acute Distress Eyes/N/T: EOMI, Head/Neck: neck supple, CV: RRR, No murmurs, Pulm: Clear b/l, no wheezing/rhonchi/rales Abd: soft, nontender, +BS x4 Ext: no clubbing/cyanosis/edema to LE. Left hand with erythema/edema that was streaking of the arm is now improved. Large bulla with pustulant's over the thumb. Erythema/edema has improved and is more isolated to the lesion over the thumb now. Patient able to close her fist 60%. Neuro: Alert, no focal deficits, moves all extremities Skin: warm/dry OBJ DATA Labs CBC & Chem 7: 08/28/21 07:25 08/28/21 07:25 Labs: Abnormal Lab Results 08/28/21 08/28/21 07:34 07:25 POC Chloride 109 H Creatinine 0.5 L POC Creatinine 0.4 L Glucose 106 H POC Glucose 107 H POC WB Ioniz Calcium 1.10 L Ionized Calcium Kat 1.03 L Meds: Medications Acetaminophen (Acetaminophen 325 Mg Tablet) 650 mg PO Q6HP PRN; Protocol PRN Reason: Per Pain Protocol/Fever > 101 Last Admin: 08/30/21 05:53 Dose: 650 mg Hydrocodone Bitart/Acetaminophen (Hydrocodone/Apap 5/325mg Tablet) 1 tab PO Q4HP PRN PRN Reason: PAIN LEVEL 3-6 Last Admin: 08/29/21 20:00 Dose: 1 tab Albuterol/Ipratropium (Ipratropium/Albuterol 3 Ml Ampul.Neb) 3 ml NEB Q4HP PRN PRN Reason: Shortness Of Breath Docusate Sodium (Docusate Sodium 100 Mg Capsule) 100 mg PO BID [facility] Last Admin: 08/29/21 20:02 Dose: Not Given Hydroxyzine HCl (Hydroxyzine 25 Mg Tablet) 25 mg PO QHS [facility] Last Admin: 08/29/21 19:59 Dose: 25 mg Potassium Chloride 40 meq/ (Dextrose) 520 mls @ 130 mls/hr IV UD PRN PRN Reason: Potassium < 3 Magnesium Sulfate (Magnesium Sulfate) 2 gm in 50 mls @ 50 mls/hr IV UD PRN PRN Reason: Magnesium </= 1.6 Ceftriaxone Sodium 2 gm/ (Dextrose) 50 mls @ 100 mls/hr IV Q24H [facility]; Protocol Last Admin: 08/30/21 07:15 Dose: 100 mls/hr Vancomycin HCl 1,500 mg/ (Sodium Chloride) 500 mls @ 333.3 mls/hr IV Q12H [facility] Last Infusion: 08/29/21 23:20 Dose: Infused Lorazepam (Lorazepam 2 Mg/Ml Vial) 0.5 mg IV Q4-6HP PRN PRN Reason: ANXIETY/SEDATION Last Admin: 08/29/21 21:46 Dose: 0.5 mg Melatonin (Melatonin 3 Mg Tablet) 6 mg PO HSP PRN PRN Reason: Sleep Morphine Sulfate (Morphine 4 Mg/Ml Vial) 0 mg IV Q3HP PRN PRN Reason: Pain Last Admin: 08/30/21 03:37 Dose: 3 mg Ondansetron HCl (Ondansetron 4 Mg/2 Ml Vial) 4 mg IV Q4HP PRN PRN Reason: Nausea And Vomiting Last Admin: 08/29/21 09:23 Dose: 4 mg Polyethylene Glycol (Polyethylene Glycol 3350 17 Gm Packet) 17 gm PO DAILYP PRN PRN Reason: Constipation Potassium Chloride (Potassium Chloride 20 Meq Tablet) 40 meq PO UD PRN PRN Reason: Potssium is 3-3.5 Potassium Chloride (Potassium Chloride 20 Meq Tablet) 40 meq PO UD PRN PRN Reason: Potassium < 3 Senna (Sennosides 1 Tablet) 2 tab PO DAILYP PRN PRN Reason: Constipation Sertraline HCl (Sertraline 50 Mg Tablet) 50 mg PO BID [facility] Last Admin: 08/29/21 19:59 Dose: 50 mg Sodium Chloride (0.9 % Sodium Chloride 10 Ml Syringe) 10 ml IV Q8 [facility] Last Admin: 08/30/21 05:50 Dose: 10 ml Temazepam (Temazepam 15 Mg Capsule) 15 mg PO HSP PRN PRN Reason: Insomnia Last Admin: 08/29/21 22:53 Dose: 15 mg Vancomycin HCl (Vancomycin Per Pharmacy) 1 order IV UD [facility]; Protocol A/P Narrative A/P Narrative: A: *Left hand cellulitis/abscess/tenosynovitis: s/p I&D in ED. failed outpatient antibiotics -WC with Staph Aureus *Depression: *Tobacco abuse: P: -IV antibiotics, pending final wound cultures -Orthopedics surgery following -mrsa screen neg -Smoking cessation counseling -ppx: SCD/ambulation Time Spent With Patient Time: Total time spent is greater than 50% in coordination of care (as documented) at patient's floor/unit and/or counseling patient: [facility] VTE Deep Vein Thrombosis/Pulmonary Embolism Present on Admission: No
--- NOTE | 2021-08-30 08:00 | Discharge Summary ---
Discharge Provider Provider IMPORTANT FOLLOW-UP INFORMATION FOR PCP: Patient information: Note initiated : 08/30/21 at 7:57 am Service Date, if different from initiated Date: [] Patient: Huong Begum 40 y/o F admitted on 08/28/21 for Left Arm Infection. Chief Complaint: [] Date of admission: 08/28/21 12:55 Discharge date: 08/30/21 Primary care physician: [facility] Consults: 08/28/21 Consult to Physician [CONS] Stat Comment: Consulting Provider: Dmitriy Sousa Reason For Exam: Physician to Consult Consult to Physician [CONS] Stat Comment: Consulting Provider: Minh Carrasco Reason For Exam: Physician to Consult COURSE Hospital Course Hospital course: History of present illness: Ms. Begum is a 40 year old F Presents to the ED with left hand pain and swelling tenderness redness. Patient woke up Monday morning with what appeared to be a small bite on her thumb it was mildly red. She did find a spider in her bed. This spot worsen became more swollen red and tender and she went to the [facility] on Monday and got Keflex and has been taking that but it is continued to worsen. And in thumb become more swelling she had some red streaks up her arm. Fevers and chills nausea but no vomiting. In the ED she was evaluated found to have a small abscess on her thumb and concern for tenosynovitis. Orthopedic surgery was consulted. Physician dental front office assistant withdrew some small amount of pus from the abscess area. Because of the severe worsening even on oral antibiotics patient is admitted. 08/29 Patient states mediocre sleep last night. She feels her hand arm is slowly improving, still painful still swollen and red. Says little more pus was able to drain out of the lesion. 08/30 Left hand are much improved. No more red streaking, swelling improving, he was now isolated over the lesion over the thumb which is still occasionally draining fluid. Patient feeling much better. She was offered further incision drainage by the physician dental front office assistant to the orthopedic surgeon yesterday the patient declined stating it was currently draining patiently. I will have her follow-up with them outpatient to monitor. A: *Left hand cellulitis/abscess/tenosynovitis: s/p I&D in ED. failed outpatient antibiotics -WC withStaph Aureus *Depression: *Tobacco abuse: P: -IV antibiotics, pending final wound cultures -Orthopedics surgery Discharge diagnosis: Left hand cellulitis abscess Secondary discharge diagnosis: Depression tobacco abuse Time Spent with Patient Time attestation: Total time spent providing and/or coordinating discharge services: Time spent: Greater than 30 minutes EXAM Constitutional Vitals: Temp Pulse Resp BP Pulse Ox O2 Del Method 99.0 F 62 18 135/80 97 08/30/21 04:00 08/30/21 04:00 08/30/21 04:00 08/30/21 04:00 08/30/21 04:00 08/30/21 04:00 Discharge Data Data Completed and Pending Labs on day of discharge: Preliminary micro results at discharge 08/28/21 12:53 Gram Stain - Preliminary Thumb - Left Wound Culture - Preliminary Staphylococcus aureus 08/28/21 11:19 Gram Stain - Preliminary Thumb - Left Anaerobic Culture - Preliminary Discharge Plan Patient/Caregiver Discharge Instructions Activity: increase activity as tolerated Diet: Regular Diet Prescriptions: New sulfamethoxazole-trimethoprim [Bactrim DS] 800-160 mg tablet 1 tab PO Q12H Qty: 12 0RF Continued hydroxyzine HCl 25 mg Tablet 25 mg PO QHS sertraline 50 mg PO BID estradiol 0.5 mg PO QAM Discontinued cephalexin 500 mg capsule 500 mg PO TID Qty: 21 0RF Follow Up Plan Follow up with: Dmitriy Sousa MD [Physician] - [facility] [Primary Care Provider] - Patient Disposition: Home, Self-Care Prognosis: Fair Overall status at discharge: patient is progressing back to baseline Discharge Orders: Discharge Order (Routine); Ordered 08/30/21 [facility]/Pulmonary Embolism Present on Admission: No
[2021-08-30] MEDS: SERTRALINE 50 MG TABLET PO SCH (08:22)
[2021-08-30] MEDS: DOCUSATE SODIUM 100 MG CAPSULE PO SCH (08:22)
[2021-08-30] MEDS: HYDROcodone/APAP 5/325MG TABLET PO PRN (08:27)
== END 2021-08-30 09:46 | disposition home or self-care (01) | DRG 918 ==
LOC: ED 06:39 → MEDSUR 12:55
PROVIDERS: ADMIT Internal Medicine; ATTEND Internal Medicine